=== PATIENT | male | born 1960 | race Caucasian/White ===

== ENCOUNTER 2016-05-22 15:04 | Emergency (ER) | payer OTHER | END 2016-05-22 15:59 | disposition home or self-care (01) | LOC: ER 15:04 | DX: M25.561 Pain in right knee (principal); I48.91 Unspecified atrial fibrillation; J44.9 Chronic obstructive pulmonary disease, unspecified; I50.9 Heart failure, unspecified; I11.0 Hypertensive heart disease with heart failure ==

== ENCOUNTER 2016-05-29 19:58 | Emergency (ER) | payer OTHER | END 2016-05-29 20:42 | disposition home or self-care (01) | LOC: ER 19:58 | DX: J06.9 Acute upper respiratory infection, unspecified (principal) | CPT/HCPCS: 87502 ==

== ENCOUNTER 2016-09-06 08:57 | Emergency (ER) | payer OTHER | END 2016-09-06 09:45 | disposition short-term general hospital (02) | LOC: ER 08:57 | DX: T82.897A Other specified complication of cardiac prosthetic devices, implants and grafts, initial encounter (principal); R42 Dizziness and giddiness; Z79.899 Other long term (current) drug therapy; J44.9 Chronic obstructive pulmonary disease, unspecified; I50.9 Heart failure, unspecified ==